=== PATIENT | male | born 1950 | race Caucasian/White ===

== ENCOUNTER 2017-08-25 11:40 | Emergency (ER) | payer MEDICARE ==
[2017-08-25 12:50] VITALS: RESP 18; O2SAT 99
--- NOTE | 2017-08-25 13:45 | ED PDOC ---
Arrival/HPI - General Chief Complaint: Abnormal Skin Integrity Time Seen by Provider: 08/25/17 13:41 Historian: Patient - History of Present Illness Narrative History of Present Illness (Text): 08/25/17 13:41 This 67 yo male presents to this ED c/o left index finger laceration x [employer]. Patient stated he was cutting bushes with his machete, when he accidentally cut his index finger. patient stated he has FROM of affected finger. Last tetanus is [facility]. Time/Duration: Other (see hpi) Context: Home Past Medical History - Provider Review Nursing Documentation Reviewed: Yes - Infectious Disease Hx of Infectious Diseases: None - Cardiac Hx Hypertension: Yes - Neurological Hx Neurological Disorder: No - Endocrine/Metabolic Hx Endocrine Disorders: No - Integumentary Hx Dermatological Disorder: No - Psychiatric Hx Substance Use: No - Anesthesia Hx Anesthesia Reactions: No Family/Social History - Physician Review Nursing Documentation Reviewed: Yes Family/Social History: Other (noncontributory) Smoking Status: Unknown If Ever Smoked Hx Alcohol Use: No Hx Substance Use: No Allergies/Home Meds Allergies/Adverse Reactions: Allergies No Known Allergies Allergy (Verified 08/25/17 12:50) Review of Systems - Review of Systems Constitutional: Normal. absent: Fatigue, Weight Change, Fevers Eyes: Normal ENT: Normal Respiratory: Normal Cardiovascular: Normal Gastrointestinal: Normal Genitourinary Male: Normal Musculoskeletal: Other (see hpi) Skin: Normal Neurological: Normal Endocrine: Normal Hemo/Lymphatic: Normal Psychiatric: Normal Physical Exam Vital Signs Temp Pulse Resp BP Pulse Ox 08/25/17 12:43 98.7 F 88 18 117/76 99 Temperature: Afebrile Blood Pressure: Normal Pulse: Regular Respiratory Rate: Normal Appearance: Positive for: Well-Appearing, Non-Toxic, Comfortable Pain Distress: None Mental Status: Positive for: Alert and Oriented X 3 - Systems Exam Head: Present: Atraumatic, Normocephalic Pupils: Present: PERRL Extroacular Muscles: Present: EOMI Conjunctiva: Present: Normal Mouth: Present: Moist Mucous Membranes Upper Extremity: Present: Normal ROM, NORMAL PULSES, Neurovascularly Intact, Capillary Refill < 2s, Other ((+) U-shape left dorsal 2nd finger, approx. 4 cm) . No: Cyanosis, Edema Lower Extremity: Present: Normal Inspection, NORMAL PULSES, Normal ROM Neurological: Present: GCS=15, CN II-XII Intact, Speech Normal, Motor Func Grossly Intact Skin: Present: Warm, Dry, Normal Color. No: Rashes Psychiatric: Present: Alert, Oriented x 3, Normal Insight, Normal Concentration Medical Decision Making ED Course and Treatment: 08/25/17 15:18 Re-evaluation. Patient feels better. Discussed results and plan with patient who expresses understanding. All questions answered and there is agreement with the plan to discharge home with instructions. Patient stable for discharge. Return if symptoms persist or worsen. Re-evaluation Time: 15:18 Reassessment Condition: Re-examined, Improved - Medication Orders Current Medication Orders: Discontinued Medications Tetanus/Reduced Diphtheria/Acell Pertussis (Boostrix Vaccine Inj) 0.5 ml IM .ONCE ONE Stop: 08/25/17 13:48 Last Admin: 08/25/17 14:15 Dose: 0.5 ml Immunization Registry Document 08/25/17 14:15 HI (Rec: 08/25/17 14:15 HI [id number]) Immunization Registry Consent Date 08/25/17 - Procedure PROCEDURE NOTE (Text): 08/25/17 15:18 7 sutures Disposition/Present on Arrival - Present on Arrival Any Indicators Present on Arrival: No History of DVT/PE: No History of Uncontrolled Diabetes: No Urinary Catheter: No History of Decub. Ulcer: No History Surgical Site Infection Following: None - Disposition Have Diagnosis and Disposition been Completed?: Yes Diagnosis: Finger laceration Disposition: HOME/ ROUTINE Disposition Time: 15:18 Patient Plan: Discharge Condition: GOOD Discharge Instructions (ExitCare): Laceration Repair With Stitches (DC) Additional Instructions: Call private doctor for follow up visit in 1-2 days. Clean wound daily with soap and water . Keep wound clean and dry for 2 days. Then clean wound daily with soap and water, and Neosporin ointment. Return to emergency if wound becomes infected. Sutures will fall off by themselve Prescriptions: Cephalexin [cephalexin] 500 mg PO QID #20 cap Ibuprofen [Motrin] 400 mg PO Q8H PRN #20 tab PRN Reason: Pain, Severe (8-10) Referrals: Barry Mcdaniel [Primary Care Provider] - Follow up with primary Forms: Prixing (Vietnamese)
[2017-08-25] MEDS ORDERED: TDAP Vaccine 0.5 mL Syr IM ONE (13:47)
[2017-08-25 20:51] VITALS: BP 132/90; PULSE 85; TEMP 98.3
== END 2017-08-25 15:40 | disposition home or self-care (01) ==
LOC: ED 11:40
DX: S61.211A Laceration without foreign body of left index finger without damage to nail, initial encounter (principal); W45.8XXA Other foreign body or object entering through skin, initial encounter; I10 Essential (primary) hypertension; Z23 Encounter for immunization